=== PATIENT | male | born 1980 | race Caucasian/White ===

== ENCOUNTER 2016-12-17 17:14 | Emergency (ER) | payer OTHER ==
[2016-12-17 17:19] VITALS: BP 134/97; PULSE 73; RESP 16; TEMP 98.4; O2SAT 95
--- NOTE | 2016-12-17 19:05 | EDPHY ---
HPI/HX/ROS/PE/MDM Narrative: Portions of this note were transcribed by an ED scribe. I personally performed the history, physical exam, and medical decision making; and confirm the accuracy of the information in the transcribed note. CHIEF COMPLAINT: Right thumb injury HPI: The patient is a 36 y/o male complaining of a right thumb injury. He says he was sleepwalking around 03:00 this morning per his girlfriend and tripped and hit his right thumb on something. His pain did not improve throughout the day so he came to the ED for evaluation. No other injuries. REVIEW OF SYSTEMS: Aside from elements discussed in the HPI, a comprehensive 10-point review of systems was reviewed and is negative. PMH: Sleepwalking SOCIAL HISTORY: Girlfriend at bedside. Works for company that makes [employer]. PHYSICAL EXAM: General:Patient is alert, in no acute distress. Skin: Normal color. No rash. Warm and dry. Extremities: Normal appearance. Full range of motion. Tenderness to right distal thumb. Neuro: Oriented x3. Normal motor function. Normal sensory function. ED Course: Study: Right thumb x-ray Indication: Pain, trauma Results: Thumb x-ray was obtained. The results of the study are: Mildly comminuted and minimally displaced fracture of the distal phalanx of the right thumb. The study was read by the radiologist, Dr. Monroy. I viewed the images myself on the PACS system. MDM: Nondisplaced closed distal phalanx injury. The patient will be placed in an aluminum finger splint and given referral to Hand surgery. I see no signs of neurovascular compromise. General Time Seen by Provider: 12/17/16 18:59 Initial Vital Signs: Initial Vital Signs Temperature (C) 36.9 C 12/17/16 17:16 Heart Rate 73 12/17/16 17:16 Respiratory Rate 16 12/17/16 17:16 Blood Pressure 134/97 H 12/17/16 17:16 O2 Sat (%) 95 12/17/16 17:16 O2 Delivery Mode Room Air Allergies/Adverse Reactions: No Known Allergies Allergy (Unverified 12/17/16 17:19) Home Medications: Medication Instructions Recorded NK [No Known Home Meds] 12/17/16 Departure - Departure Disposition: Home, Routine, Self-Care Clinical Impression: Fracture of distal phalanx of right thumb Condition: Good Instructions: Thumb Fracture (ED) Additional Instructions: 1. Use Tylenol or ibuprofen as directed on the packaging as needed for pain over the next 4-7 days. 2. Keep thumb in splint until cleared by hand specialist. This may be a few weeks. 3. Keep hand elevated when possible. 4. Follow up with Dr. Lester, hand surgeon, in the next 3-5 days. 5. Return to the ED for severe pain, dramatic increase in redness or swelling, weakness or numbness in the thumb. Referrals: Darwin Burnham MD [Primary Care Provider] - As per Instructions Poly Lester MD [Medical Doctor] - As per Instructions Stand Alone Forms: Work Limited Duty
== END 2016-12-17 19:36 | disposition home or self-care (01) ==
DX: S62.521A Displaced fracture of distal phalanx of right thumb, initial encounter for closed fracture (principal); W22.8XXA Striking against or struck by other objects, initial encounter; Y93.89 Activity, other specified
CPT/HCPCS: L3925

== ENCOUNTER 2018-10-14 10:28 | Emergency (ER) | payer OTHER ==
[2018-10-14 10:47] VITALS: BP 138/87
--- NOTE | 2018-10-14 10:55 | EDPHY ---
H & P Time Seen by Provider: 10/14/18 10:44 HPI/ROS: CLINICAL IMPRESSION: Right knee sprain ASSESSMENT/PLAN: 37-year-old male with no significant reported past medical history presents to the emergency department with right knee pain after twisting the knee last night. No obvious swelling or joint effusion noted. No proximal or distal joint injury. No radiologic evidence to support fracture or underlying dislocation. Negative anterior drawer and Escobar testing. Patient has a knee brace at home. Rice treatment discussed, orthopedic referral given, warning signs return to ED sooner outlined and discharge. Work note provided for today. DIFFERENTIAL DX: Differential includes but not limited to acute fracture, ligamentous injury, meniscus injury, sprain ED PROCEDURES: Patient has a knee brace at home ED COURSE: 11:20 a.m.: Preliminary review of x-rays of the knee show no acute tibial plateau or proximal fibular fracture. Patient has a knee brace at home he will continue to use. Orthopedic referral given. CHIEF COMPLAINT: Right knee pain HPI: 37-year-old male presents to the emergency department with complaints of right knee pain since yesterday. Patient reports he was playing with his 10-year-old , have the child over his shoulder when his right knee gave out. He believes that it went laterally. He fell to the left side. He slept with a brace on the knee last night but did not apply ice or elevate. He has not taken any medication. Today he has some pain with movement of the knee and weight- bearing. No obvious swelling. No complaints of hip, ankle or foot pain. No prior orthopedic injury or surgery to this knee. PAST MEDICAL HISTORY: None reported Pertinent Past Surgical History: None reported Social History: Nonsmoker otherwise healthy REVIEW OF SYSTEMS: All other systems negative Constitutional: No fever, no chills Musculoskeletal: No deformity, + joint pain Skin: No rashes, color change or open wounds. Neurological: No sensory loss or weakness. PHYSICAL EXAM: General Appearance: Alert, oriented, appropriate for age, cooperative, NAD, well hydrated, non-toxic appearing, VSS, no hypoxia. Neurological: Alert and oriented x 3, normal sensation and strength of extremities Skin: Warm, dry, no rashes, no nodules on palpation. Musculoskeletal: No obvious swelling to right knee compared to left. No color change. Mild reproducible tenderness to the proximal tibia and fibular. Negative anterior drawer and Escobar testing. Distal neurovascular exam intact. No patellar deformity. MEDICAL DECISION MAKING: Patient was seen independently.Secondary supervising physician at time of evaluation was Dr. Richardson. Diagnosis: Right knee sprain. New, requires workup Summary: See assessment and plan for summary of ED visit Independent visualization of images, tracing, or specimens yes. Patient Progress stable. Smoking Status: Never smoked Constitutional: Initial Vital Signs Temperature (C) 36.9 C 10/14/18 10:45 Heart Rate 76 10/14/18 10:45 Respiratory Rate 16 10/14/18 10:45 Blood Pressure 138/87 H 10/14/18 10:45 O2 Sat (%) 96 10/14/18 10:45 O2 Delivery Mode Room Air Allergies/Adverse Reactions: No Known Allergies Allergy (Unverified 12/17/16 17:19) Home Medications: Medication Instructions Recorded NK [No Known Home Meds] 12/17/16 MDM/Departure - MDM Imaging: I viewed and interpreted images myself - Depart Disposition: Home, Routine, Self-Care Clinical Impression: Knee pain, right Qualifiers: Chronicity: acute Qualified Code(s): M25.561 - Pain in right knee Condition: Good Instructions: Knee Pain (ED) Additional Instructions: DISCHARGE INSTRUCTIONS FROM YOUR DOCTOR Thank you for visiting our emergency department today. Please keep in mind that discharge from the emergency department does not mean that there is nothing wrong - it simply means that we have not identified an emergency condition that requires further evaluation or treatment in the hospital. You should always plan to follow up with primary care for re-evaluation of your condition in the next 2-3 days. If you have been referred to a specialist, please call as soon as possible (today or tomorrow) to schedule your follow up appointment at the appropriate time. Preliminary review of the x-rays of your knee show no evidence of tibial plateau or proximal fibular fracture. You may have sustained a meniscus injury or ligamentous injury. We do not routinely perform emergent MRIs for orthopedic injuries in the ER. We recommend that you rest at home, apply ice intermittently 20 min on, 20 min off, elevate the leg, and use the knee brace you have as needed. An orthopedic referral was given. Please call them for a follow-up if her symptoms persist. Return to the emergency department for worsening pain, loss of sensation to the leg or foot, increased swelling, fevers or any other concern. People present with illnesses and injuries in different ways, and it is always possible that we have missed something. You may always return for re-evaluation if symptoms worsen or if they are not improving or if you develop new/different symptoms. Again, thank you for choosing our emergency department. We hope that you feel better. Referrals: Darwin Burnham MD [Primary Care Provider] - As per Instructions Kerwin Orellana MD [Medical Doctor] - 2-3 days, if not improved
== END 2018-10-14 11:29 | disposition home or self-care (01) ==
DX: S89.91XA Unspecified injury of right lower leg, initial encounter (principal); X50.1XXA Overexertion from prolonged static or awkward postures, initial encounter; Y92.9 Unspecified place or not applicable; Y93.9 Activity, unspecified; Y99.9 Unspecified external cause status